=== PATIENT | female | born 1985 | race Caucasian/White ===

== ENCOUNTER 2016-11-25 16:27 | Emergency (ER) | payer OTHER ==
[2016-11-25 16:43] VITALS: BP 113/69; PULSE 72; TEMP 97.6; BMI 23.8
[2016-11-25] MEDS ORDERED: KETOROLAC TROMETHAMINE 60 MG/2 ML VIAL ONE (17:11)
[2016-11-25] MEDS ORDERED: CYCLOBENZAPRINE HCL 10 MG TABLET (FP) ONE (17:12)
[2016-11-25] MEDS ORDERED: CYCLOBENZAPRINE HCL 10 MG TABLET (FP) PO ONE (17:21)
[2016-11-25] MEDS ORDERED: KETOROLAC TROMETHAMINE 60 MG/2 ML VIAL IM ONE (17:21)
--- NOTE | 2016-11-25 17:32 | PDOC ---
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 Patient denies any slip, denies any trauma, denies any recent injury. 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 Denies fever, denies any bowel or bladder changes, has no recurring and is not currently sexually active Occurred: reports: just prior to arrival, this afternoon Severity: reports: moderate, severe Pain Location: reports: back Method of Injury: Yes: unknown Modifying Factors: improves with: pain medication Loss of Consciousness: no loss of consciousness Associated Symptoms (Fall): denies symptoms Past History - Travel Traveled outside of the country in the last 30 days: No Close contact w/someone who was outside of country & ill: No - Past Medical History Allergies/Adverse Reactions: Allergies Allergy/AdvReac Type Severity Reaction Status Date / Time No Known Allergies Allergy Verified 11/25/16 16:44 Home Medications: Ambulatory Orders Cyclobenzaprine HCl [Flexeril 10 mg] 10 mg PO BID PRN #14 tablet 11/25/16 Other medical history: PATIENT DENIES MEDICAL HX - Psycho/Social/Smoking Cessation Hx Suicidal Ideation: No Smoking History: Never smoked Hx Alcohol Use: No Drug/Substance Use Hx: No Substance Use Type: None Trauma Specific PMHX - Complaint Specific PMHX Back Injury: Yes Neck Injury: No Review of Systems - Review of Systems Able to Perform ROS?: Yes Is the patient limited Tajik proficient: Yes Constitutional: Yes: See HPI, Malaise. No: Symptoms Reported, Chills, Fever HEENTM: Yes: See HPI. No: Symptoms Reported Musculoskeletal: Yes: Symptoms Reported, See HPI, Back Pain, Muscle Pain Integumentary: No: Symptoms Reported Neurological: Yes: Symptoms reported, See HPI, Paresthesia (left leg/sciatic) All Other Systems: Reviewed and Negative *Physical Exam - Vital Signs Last Vital Signs Temp Pulse Resp BP Pulse Ox 97.6 F 72 16 113/69 100 11/25/16 16:30 11/25/16 16:30 11/25/16 16:30 11/25/16 16:30 11/25/16 16:30 - Physical Exam General Appearance: Yes: Nourished, Appropriately Dressed, Apparent Distress, Moderate Distress HEENT: positive: CAR, Normal ENT Inspection, TMs Normal, Pharynx Normal Respiratory/Chest: positive: Lungs Clear, Normal Breath Sounds Cardiovascular: positive: Regular Rate Gastrointestinal/Abdominal: positive: Soft. negative: Tender Musculoskeletal: positive: Normal Inspection, Decreased Range of Motion ( secondary to spasm and pain), Muscle Spasm (tender tight musculature to the left lower vertebral spinous muscles from lower thorax extending into gluteus). 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 intact, Fully Oriented, Alert, Normal Mood/ Affect, Normal Response, Motor Strength 5/5 Progress Note - Progress Note Progress Note: Back spasm, will treat with NSAIDs and cyclobenzaprine *DC/Admit/Observation/Transfer Diagnosis at time of Disposition: Muscle spasm of back - Discharge Dispostion Disposition: HOME Condition at time of disposition: Good Admit: No - Prescriptions Prescriptions: Cyclobenzaprine HCl [Flexeril 10 mg] 10 mg PO BID PRN #14 tablet PRN Reason: spasm - Referrals Referrals: Dm Rodriguez MD [Primary Care Provider] - - Patient Instructions Printed Discharge Instructions: DI for Back Spasm Additional Instructions: Rest, no heavy lifting or exercise until pain is resolved Hot soaks to neck and low back as often as possible/hot showers or Jacuzzis No massage or therapy until spasm is gone Continue ibuprofen 2-200 mg tablets every 6 hours for the next 3 days then as needed for pain and swelling Cyclobenzaprine 1-10mg every 8 hours as needed for spasm If not significant improvement within 24 hours with medication and rest regime, followup with private physician for change in medications and /or therapy. - Post Discharge Activity Work/School Note: Back to Work
== END 2016-11-25 17:48 | disposition home or self-care (01) ==
LOC: JERFT 16:27
PROC: 3E0233Z Introduction of Anti-inflammatory into Muscle, Percutaneous Approach (ICD-10-PCS; principal; 2016-11-25)
DX: M62.830 Muscle spasm of back (principal)
CPT/HCPCS: 99281-25

== ENCOUNTER 2017-04-08 19:14 | Emergency (ER) | payer OTHER ==
[2017-04-08 19:20] VITALS: BP 97/59; PULSE 63; TEMP 97.6; BMI 23.8
[2017-04-08 19:26] LABS: PH,URINE 6.5 (4.5-8); URINE APPEARANCE Clear; URINE BILIRUBIN Negative (NEGATIVE); URINE BLOOD Negative (NEGATIVE); URINE COLOR YELLOW; URINE GLUCOSE (UA) Negative (NEGATIVE); URINE KETONE 1+ (NEGATIVE); URINE LEUK ESTERASE Negative (NEGATIVE); URINE NITRITE Negative (NEGATIVE); URINE PROTEIN Negative (NEGATIVE); URINE UROBILINOGEN 0.2 (0.2-1.0)
--- NOTE | 2017-04-08 19:30 | PDOC ---
History of Present Illness - History of Present Illness Initial Comments: 04/08/17 19:41 The patient is a 31 year old female, with no significant past medical history of kidney stones (Summer 2016) and chronic back pain, who presents to the emergency department with progressively increasing left lower quadrant and left pelvic pain today. She states the pain is sharp with intermittent radiation into her left inguinal region. She reportedly took one percocet that she had left over from the kidney stones without significant relief. She states this feels like my kidney stone. The patient states she is sexually active with her and is trying to become . LMP: over 3 months ago (irregular since after IUD removal) She denies chest pain, shortness of breath, headache and dizziness. She denies fever, chills, nausea, vomit, diarrhea and constipation. She denies dysuria, frequency, urgency and hematuria. 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 No sore throat,. No ear pain CardioVascular: No chest pain or shortness of breath Respiratory:No cough, or wheezing. Gastrointestinal: (+) right lower abdominal pain. no nausea, vomiting, diarrhea or constipation, No rectal bleeding Genitourinary: (+) right inguinal pain. No dysuria, hematuria, or frequency Musculoskeletal: No joint or muscle pain or swelling Neurologic: No headache, vertigo, dizziness or loss of consciousness Psychiatric: nor depression Skin: No rashes or easy bruising Endocrine: no increased thirst or abnormal weight change Allergic: no skin or latex allergy All other systems reviewed and normal Adult Exam: General: Well-nourished well-developed individual, no acute distress HEENT: Throat: Normal, tonsils normal, no erythema or exudate Neck: Supple, no meningeal signs, no lymphadenopathy Eyes::Pupils equal reactive and round, extraocular motion intact Chest: Nontender to palpation Abdomen: (+) LLQ and left adnexal tenderness, mild left flank ttp Soft, nondistended, normal bowel sounds, nontender to palpation diffusely. Extremities: Warm, dry, no cyanosis, clubbing, or edema Skin: No rashes Neuro: Alert and oriented x3, nonfocal exam, grossly intact, normal gait Psych: Normal mood and affect Pelvic: (+) no discharge no cervical motion tenderness. mild left adnexal tenderness <Na Gonzales - Last Filed: 04/08/17 21:06> - General History Source: Patient Exam Limitations: No Limitations - History of Present Illness Initial Comments: 04/08/17 20:17 A portion of this note was documented by scribe services under my direction. I have reviewed the details of the note, within reason, and agree with the documentation. The case summary and management plan written by me. Medical decision making This is a 31-year-old female comes in complaining of left groin/left lower quadrant and flank pain similar to what she has had in the past with kidney stones. Patient however had a urine that was negative for blood. On my exam patient did have some left flank tenderness as well as left lower quadrant/ pelvic tenderness. There was no guarding or rebound I did a pelvic exam and there was some left adnexal tenderness. Patient's test was negative and a stone protocol noncontrast CAT scan was done of her abdomen and pelvis. Differential includes ovarian cyst, kidney stone, ovulation pain, Nonspecific pelvic pain 04/08/17 21:10 Patient had a CAT scan done that showed no kidney stone, no obstructive uropathy no hydronephrosis or hydroureter. Uterus was normal however there was a small amount of free fluid in the pelvis. This most likely was secondary to a ruptured ovarian cyst or could've been physiologic however given the patient's pelvic pain it is likely that it was a ruptured ovarian cyst and the fluid is contributing to her pain. Patient told to take an anti-inflammatory such as ibuprofen for pain and follow- up with her OB doctor this week if symptoms did not resolve within the next 24 hours. <Teagan Hairston I - Last Filed: 04/08/17 21:21> - General Chief Complaint: Pain, Acute Stated Complaint: LT GROIN PAIN Time Seen by Provider: 04/08/17 19:29 Past History <Na Gonzales - Last Filed: 04/08/17 21:06> - Past Medical History COPD: No Kidney Stones: Yes Other medical history: CHRONIC BACK PAIN - Suicide/Smoking/Psychosocial Hx Smoking History: Never smoked Hx Alcohol Use: No Drug/Substance Use Hx: No Substance Use Type: None <Teagan Hairston I - Last Filed: 04/08/17 21:21> - Past Medical History Allergies/Adverse Reactions: Allergies Allergy/AdvReac Type Severity Reaction Status Date / Time No Known Allergies Allergy Verified 11/25/16 16:44 Home Medications: Ambulatory Orders Oxycodone HCl/Acetaminophen [Percocet 5-325 mg Tablet] 1 - 2 tab PO PRN PRN Tramadol HCl [Ultram -] 50 mg PO PRN PRN 04/08/17 *Physical Exam - Vital Signs Last Vital Signs Temp Pulse Resp BP Pulse Ox 97.6 F 63 16 97/59 100 04/08/17 19:18 04/08/17 19:18 04/08/17 19:18 04/08/17 19:18 04/08/17 19:18 <Na Gonzales - Last Filed: 04/08/17 21:06> - Vital Signs Last Vital Signs Temp Pulse Resp BP Pulse Ox 97.6 F 63 16 97/59 100 04/08/17 19:18 04/08/17 19:18 04/08/17 19:18 04/08/17 19:18 04/08/17 19:18 <Teagan Hairston I - Last Filed: 04/08/17 21:21> ED Treatment Course - LABORATORY CBC & Chemistry Diagram: 04/08/17 19:42 04/08/17 19:42 - ADDITIONAL ORDERS Additional order review: Laboratory Results 04/08/17 19:15 Urine Color Yellow Urine Appearance Clear Urine pH 6.5 Ur Specific Exchange 1.025 Urine Protein Negative Urine Glucose (UA) Negative Urine Ketones 1+ H Urine Blood Negative Urine Nitrite Negative Urine Bilirubin Negative Urine Urobilinogen 0.2 Ur Leukocyte Esterase Negative Urine HCG, Qual Negative - RADIOLOGY Radiograph Interpretation: EXAM#: TYPE/EXAM: RESULT: [id number] CT/ABDOMEN PELVIS CT W/O CONTR Exam: CT abdomen and pelvis without contrast. Indication: Left flank pain. Technique: Continues axial CT images of the abdomen and pelvis were obtained without oral contrast and without intravenous contrast. Coronal and sagittal reconstructions obtained. Comparison: None. Findings: Evaluation of the solid viscera, vessels, lymph nodes and bowel is limited without contrast. The visualized lung bases are clear. The heart is not enlarged. The liver is normal in size and contour. The gallbladder is contracted. The common bile duct is not dilated. The unenhanced pancreas is grossly unremarkable. Normal size spleen. No adrenal gland mass. No renal or ureteral calculi. Normal size kidneys. No hydroureteronephrosis. Normal caliber abdominal aorta. No pathologically dilated loops of large or small bowel to suggest obstruction. There is copious stool throughout the colon. The appendix is not identified, however, there are no definite pericecal inflammatory changes to suggest acute appendicitis. There is no free intraperitoneal air. No evidence of urinary bladder calculus. Urinary bladder is underdistended, limiting evaluation. Uterus is unremarkable. There is trace nonspecific free fluid in the cul-de-sac , presumably physiologic. No acute fracture in the visualized osseous structures. Osteitis condensans ilii is noted. Impression: No obstructive uropathy. No renal, ureteral or urinary bladder calculi identified. Reported By: Jax Katz DO 04/08/172102 <Na Gonzales - Last Filed: 04/08/17 21:06> - LABORATORY CBC & Chemistry Diagram: 04/08/17 19:42 04/08/17 19:42 - ADDITIONAL ORDERS Additional order review: Laboratory Results 04/08/17 19:15 Urine Color Yellow Urine Appearance Clear Urine pH 6.5 Ur Specific Exchange 1.025 Urine Protein Negative Urine Glucose (UA) Negative Urine Ketones 1+ H Urine Blood Negative Urine Nitrite Negative Urine Bilirubin Negative Urine Urobilinogen 0.2 Ur Leukocyte Esterase Negative <Teagan Hairston I - Last Filed: 04/08/17 21:21> *DC/Admit/Observation/Transfer - Attestations Scribe Attestion: 04/08/17 19:42 Documentation prepared by Na Gonzales, acting as emergency medical technician for Teagan Hairston MD <Na Gonzales - Last Filed: 04/08/17 21:06> - Discharge Dispostion Admit: No <Teagan Hairston I - Last Filed: 04/08/17 21:21> Diagnosis at time of Disposition: Pelvic pain - Discharge Dispostion Disposition: HOME Condition at time of disposition: Stable - Referrals Referrals: Dm Rodriguez MD [Primary Care Provider] - - Patient Instructions Additional Instructions: For the pain you can take ibuprofen 3 tablets 3 times a day with food as needed The CAT scan shows some free fluid in the pelvis most likely secondary to a ruptured ovarian cyst or postop ovulation. This fluid should resolve over the next 24-48 hours and symptoms should improve if you develop fevers or worsening pain return to the emergency room or follow-up with your OB. Return to the emergency department immediately with ANY new, persistent or worsening symptoms. Continue any medications as previously prescribed by your physician. You should follow up with your primary doctor as soon as possible regarding today's emergency department visit. . Please make sure your doctor reviews the results of your emergency evaluation. Thank you for coming to the Emergency Department today for your care. It was a pleasure to see you today. Please note that your evaluation is INCOMPLETE until you follow-up with your doctor. - Post Discharge Activity
[2017-04-08] MEDS ORDERED: SODIUM CHLORIDE 1,000 ML IV ONE (19:34)
[2017-04-08 19:53] LABS: BASOPHIL 0.3 % (0-2.0); EOSINOPHIL 1.7 % (0-4.5); MCH 30.9 pg (25.7-33.7); MCHC 34.1 g/dl (32.0-36.0); MEAN CELL VOLUME 90.7 fl (80-96); MEAN PLT VOLUME 8.6 fl (7.5-11.1); NEUTROPHILS 57.9 % (42.8-82.8); PLATELET COUNT 257 K/MM3 (134-434); RDW 11.6 % (11.6-15.6); WHITE BLOOD COUNT 6.4 K/mm3 (4.0-10.8)
[2017-04-08 20:07] LABS: ALBUMIN 3.9 g/dl (3.5-5.0); ALK PHOS 69 U/L (32-92); ANION GAP 5 (8-16); CALCIUM 8.9 mg/dl (8.4-10.2); CO2 22 mmol/L (22-28); CREATININE 0.8 mg/dl (0.6-1.3); GLUCOSE,RANDOM 84 mg/dl (74-106); SGOT/AST 24 U/L (10-42); SGPT/ALT 20 U/L (10-40); TOT PROT 6.8 g/dl (6.4-8.3)
== END 2017-04-08 21:28 | disposition home or self-care (01) ==
LOC: FER 19:14
PROC: 3E0337Z Introduction of Electrolytic and Water Balance Substance into Peripheral Vein, Percutaneous Approach (ICD-10-PCS; principal; 2017-04-08)
DX: R10.2 Pelvic and perineal pain (principal)
CPT/HCPCS: 36415; 74176-TC; 80053; 81003; 84703; 85025; 99282-25

== ENCOUNTER 2019-05-20 04:48 | Emergency (ER) | payer BC, OTHER ==
[2019-05-20 05:14] VITALS: BMI 25.6
[2019-05-20] MEDS ORDERED: ONDANSETRON 4 MG TABLET PO ONE (05:23)
[2019-05-20] MEDS ORDERED: SODIUM CHLORIDE 0.9% 1000 ML INFUS.BAG IV ONE (05:29)
[2019-05-20] MEDS ORDERED: ONDANSETRON 4 MG/2 ML VIAL IVPUSH ONE (05:29)
[2019-05-20] MEDS ORDERED: FAMOTIDINE 20 MG/50 ML IVPB 50 ML IVPB ONE (05:29)
--- NOTE | 2019-05-20 05:30 | PDOC ---
Attending Attestation - Resident Resident Name: Reid Quiñonesony - ED Attending Attestation I have performed the following: I have examined & evaluated the patient, The case was reviewed & discussed with the resident, I agree w/resident's findings & plan - HPI HPI: 05/20/19 06:53 Pt comes with multiple complaints. One day of L flank pain, suprapubic pain with diarrhea. No fever and no chills and no flulike symptomes. She has morning sickness given her current 1st trimester . Pt has sick contacts at work - Physicial Exam PE: 05/20/19 06:54 Agree with resident exam - Medical Decision Making 05/20/19 06:55 Pt will get basic labs and hydration in the ER UA pending 05/22/19 05:15 Pt will be signed out to the day team Flu culture pending.
[2019-05-20] MEDS ORDERED: ACETAMINOPHEN 1000 MG/100 ML VIAL (NON FORMULARY) IVPB ONE (05:32)
[2019-05-20] MEDS ORDERED: ONDANSETRON 4 MG/2 ML VIAL ONE (05:42)
[2019-05-20] MEDS ORDERED: ACETAMINOPHEN INJECTION 100 ML IVPB ONE (05:42)
[2019-05-20] MEDS ORDERED: FAMOTIDINE 20 MG/50 ML IVPB 20 MG/50 ML MG IVPB ONE (05:46)
--- NOTE | 2019-05-20 06:11 | PDOC ---
History of Present Illness - General Chief Complaint: Pain, Acute Stated Complaint: CRAMPING, LIGHTHEADED Time Seen by Provider: 05/20/19 05:29 History Source: Patient Exam Limitations: No Limitations - History of Present Illness Initial Comments: 05/20/19 05:57 33F with no PMH, at 10 weeks, who presents to the ER with multiple complaints. The patient states that she's had 1 day of L flank pain, suprapubic pain with diarrhea. She denies fever, chills, sore throat, cough, dysuria, myalgias, hematuria, vaginal bleeding, vaginal discharge, and cramping. She states that she has a history of kidney stones but is unsure if this feels like a kidney stone. She states that she is nauseous at baseline for her . Pt states that "a lot" of people at her work had to be sent home for flu-like symptoms. Past History - Past Medical History Allergies/Adverse Reactions: Allergies Allergy/AdvReac Type Severity Reaction Status Date / Time No Known Allergies Allergy Verified 05/20/19 05:12 Home Medications: Ambulatory Orders Oxycodone HCl/Acetaminophen [Percocet 5-325 mg Tablet] 1 - 2 tab PO PRN PRN traMADol HCL [Ultram -] 50 mg PO PRN PRN 04/08/17 COPD: No Kidney Stones: Yes - Immunization History Immunization Up to Date: Yes - Psycho Social/Smoking Cessation Hx Smoking History: Never smoked Hx Alcohol Use: No Drug/Substance Use Hx: No Substance Use Type: None Review of Systems - Review of Systems Able to Perform ROS?: Yes Comments:: 05/20/19 06:18 GENERAL/CONSTITUTIONAL: No fever or chills. No weakness. HEAD, EYES, EARS, NOSE AND THROAT: No change in vision. No ear pain or discharge. No sore throat. CARDIOVASCULAR: No chest pain, palpitations, or lightheadedness. RESPIRATORY: No cough, wheezing, shortness of breath, or hemoptysis. GASTROINTESTINAL: + for nausea and diarrhea. No abdominal pain, vomiting, or constipation. GENITOURINARY: + for L flank pain. No dysuria, frequency, hematuria, or change in urination. MUSCULOSKELETAL: No joint or muscle swelling or pain. No neck or back pain. SKIN: No rash or lesions. NEUROLOGIC: No headache, numbness, tingling, focal weakness, loss of consciousness, or change in strength/sensation. Is the patient limited Syriac proficient: No *Physical Exam - Vital Signs Last Vital Signs Temp Pulse Resp BP Pulse Ox 98.0 F 62 18 112/62 100 05/20/19 05:12 05/20/19 05:12 05/20/19 05:12 05/20/19 05:12 05/20/19 05:12 - Physical Exam 05/20/19 06:19 GENERAL: Well developed, well nourished. Awake and alert. No acute distress. HEENT: Normocephalic, atraumatic. Hearing grossly normal. Moist mucous membranes. PERRLA, EOMI. No conjunctival pallor. Sclera are non-icteric. NECK: Supple. Full ROM. No JVD. CARDIOVASCULAR: Regular rate and rhythm. No murmurs, rubs, or gallops. Distal pulses are 2+ and symmetric. PULMONARY: No evidence of respiratory distress. Lungs clear to auscultation bilaterally. No wheezing, rales, or rhonchi. ABDOMINAL: Soft. Gravid. Non-tender. Non-distended. No rebound or guarding. GENITOURINARY: R CVA tenderness. MUSCULOSKELETAL: Normal range of motion at all joints. No bony deformities or tenderness. EXTREMITIES: No cyanosis. No clubbing. No edema. No calf tenderness or swelling. SKIN: Warm and dry. Normal capillary refill. No rashes. No jaundice. NEUROLOGICAL: Alert, awake, appropriate. Cranial nerves 2-12 grossly intact. Normal speech. Gait is normal without ataxia. PSYCHIATRIC: Cooperative. Good eye contact. Appropriate mood and affect. ED Treatment Course - LABORATORY CBC & Chemistry Diagram: 05/20/19 05:48 05/20/19 05:48 - Medications Given in the ED: ED Medications Discontinued Medications Generic Name Dose Route Start Last Admin Trade Name Freq PRN Reason Stop Dose Admin Acetaminophen 1,000 mg 05/20/19 05:32 05/20/19 05:44 Ofirmev Injection - IVPB 05/20/19 05:33 1,000 mg ONCE ONE Administration Ondansetron HCl 4 mg 05/20/19 05:23 05/20/19 05:44 Zofran - PO 05/20/19 05:24 Not Given ONCE ONE Ondansetron HCl 4 mg 05/20/19 05:29 05/20/19 05:44 Zofran Injection IVPUSH 05/20/19 05:30 4 mg ONCE ONE Administration Sodium Chloride 1,000 ml 05/20/19 05:29 05/20/19 05:44 Normal Saline - IV 05/20/19 05:30 1,000 ml ONCE ONE Administration Medical Decision Making - Medical Decision Making 05/20/19 06:21 33F a 10 weeks who presents with L flank pain, diarrhea, and possible flu positive contacts. Will obtain labs, hydrate, and flu swab. Pending labs, UA, and likely renal US to r/o hydro. 05/20/19 07:02 CBC, CMP WNL. Pt signed out to Dr. Martinez for further evaluation. Discharge - Discharge Information Problems reviewed: Yes - Follow up/Referral Referrals: Dm Rodriguez MD [Primary Care Provider] - - Patient Discharge Instructions - Post Discharge Activity
[2019-05-20 06:12] LABS: BASO % 0.4 % (0-2.0); EOS % 1.4 % (0-4.5); HEMATOCRIT 37.2 % (32.4-45.2); HEMOGLOBIN 12.9 GM/dL (10.7-15.3); MCH 31.9 pg (25.7-33.7); MCHC 34.8 g/dl (32.0-36.0); MEAN CELL VOLUME 91.8 fl (80-96); MEAN PLT VOLUME 8.4 fl (7.5-11.1); MONO % 8.8 % (3.8-10.2); NEUT % 61.4 % (42.8-82.8); PLATELET COUNT 312 K/MM3 (134-434); RBC 4.05 M/mm3 (3.60-5.2); RDW 12.6 % (11.6-15.6); WHITE BLOOD COUNT 5.4 K/mm3 (4.0-10.0)
[2019-05-20 06:43] LABS: ALBUMIN 3.4 g/dl (3.4-5.0); BILIRUBIN,TOTAL 0.7 mg/dL (0.2-1); BLOOD UREA NITROGEN 13.7 mg/dL (7-18); CALCIUM 8.7 mg/dL (8.5-10.1); CREATININE 0.6 mg/dL (0.55-1.3); POTASSIUM 3.9 mmol/L (3.5-5.1); TOT PROT 6.9 g/dl (6.4-8.2)
--- NOTE | 2019-05-20 07:20 | PDOC ---
*Physical Exam - Vital Signs Last Vital Signs Temp Pulse Resp BP Pulse Ox 98.0 F 62 18 112/62 100 05/20/19 05:12 05/20/19 05:12 05/20/19 05:12 05/20/19 05:12 05/20/19 05:12 - Physical Exam 05/20/19 09:34 General Appearance: Nourished. No Apparent Distress HEENT: No Pharyngeal Erythema, Tonsillar Exudate, Tonsillar Erythema Neck: No Cervical Lymphadenopathy Respiratory/Chest: Lungs Clear, Normal Breath Sounds. No Crackles, Rales, Rhonchi, Wheezing Cardiovascular: Regular Rhythm, Regular Rate. No Murmur, Gallops, Rubs Gastrointestinal/Abdominal: Normal Bowel Sounds, Soft. No Guarding, Rebound, Tenderness Musculoskeletal: No CVA Tenderness Extremity: Normal Capillary Refill Integumentary: Normal Color, Dry, Warm Neurologic: Fully Oriented, Alert, Normal Mood/Affect, Normal Response, ED Treatment Course - LABORATORY CBC & Chemistry Diagram: 05/20/19 05:48 05/20/19 05:48 - ADDITIONAL ORDERS Additional order review: Laboratory Results 05/20/19 05:48 Sodium 138 Potassium 3.9 Chloride 108 H Carbon Dioxide 24 Anion Gap 7 L BUN 13.7 Creatinine 0.6 Est GFR (CKD-EPI)AfAm 139.78 Est GFR (CKD-EPI)NonAf 120.61 Random Glucose 79 Calcium 8.7 Total Bilirubin 0.7 AST 13 L ALT 21 Alkaline Phosphatase 59 Total Protein 6.9 Albumin 3.4 05/20/19 05:48 RBC 4.05 MCV 91.8 MCHC 34.8 RDW 12.6 MPV 8.4 Neutrophils % 61.4 Lymphocytes % 28.0 Monocytes % 8.8 Eosinophils % 1.4 Basophils % 0.4 - Medications Given in the ED: ED Medications Discontinued Medications Generic Name Dose Route Start Last Admin Trade Name Freq PRN Reason Stop Dose Admin Acetaminophen 1,000 mg 05/20/19 05:32 05/20/19 05:44 Ofirmev Injection - IVPB 05/20/19 05:33 1,000 mg ONCE ONE Administration Ondansetron HCl 4 mg 05/20/19 05:23 05/20/19 05:44 Zofran - PO 05/20/19 05:24 Not Given ONCE ONE Ondansetron HCl 4 mg 05/20/19 05:29 05/20/19 05:44 Zofran Injection IVPUSH 05/20/19 05:30 4 mg ONCE ONE Administration Sodium Chloride 1,000 ml 05/20/19 05:29 05/20/19 05:44 Normal Saline - IV 05/20/19 05:30 1,000 ml ONCE ONE Administration Medical Decision Making - Medical Decision Making 05/20/19 10:07 Pelvic US demonstrates a live intrauterine at 9weeks with a FH or 162 as read by our radiologist. Renal US did not demonstrate any acute process as read by our radiologist. UA was unremarkable. The patient was reassessed and reports improvement in their symptoms. We are comfortable discharging the patient home in stable condition. Patient made aware of impression and plan, return precautions discussed including but not limited to worsening pain or symptoms, fevers, or signs of infection, chest pain, respiratory distress, inability to tolerate oral intake, dehydration, syncope, or neurologic changes. The patient is to follow up with PMD and specialist as recommended within 1 week , follow up information provided and the patient will call for an appointment. The patient is to take medications as instructed for duration of time and continue with supportive care, avoid triggers and precipitants. Patient is safe for outpatient follow-up. Discharge - Discharge Information Problems reviewed: Yes Clinical Impression/Diagnosis: Abdominal pain Qualifiers: Abdominal location: unspecified location Qualified Code(s): R10.9 - Unspecified abdominal pain Condition: Stable Disposition: HOME - Follow up/Referral Referrals: Dm Rodriguez MD [Primary Care Provider] - - Patient Discharge Instructions Patient Printed Discharge Instructions: DI for Abdominal Pain -- Early Additional Instructions: 1) Please follow-up with your primary care doctor in the next 2-3 days. Please call tomorrow to schedule a follow up appointment. If you cannot follow up with your doctor within 1 week please return to the Emergency Department for any urgent issues. 2) Your laboratory / imaging results were normal here in the ER. 3) If you have any worsening of symptoms or any other concerns, please return to the ER immediately. Return if worsening symptoms including fevers, headache, vomiting, visual or hearing disturbances, abdominal pain, chest pain, shortness of breath, syncope, dehydration, inability to take things by mouth/vomiting, altered mental status, or worsening concerning symptoms. 4) Please continue taking your home medications as directed. Your medications on discharge include Tylenol. Side effects may include upset stomach, abdominal pain, vomiting, or diarrhea. Do not drink alcohol with your medications. - Post Discharge Activity
[2019-05-20 08:01] LABS: PH,URINE 6.5 (5.0-8.0); URINE APPEARANCE CLEAR; URINE BILIRUBIN NEGATIVE (NEGATIVE); URINE COLOR YELLOW; URINE GLUCOSE (UA) NEGATIVE (NEGATIVE); URINE KETONE NEGATIVE (NEGATIVE); URINE LEUK ESTERASE NEGATIVE (NEGATIVE); URINE NITRITE NEGATIVE (NEGATIVE); URINE PROTEIN NEGATIVE (NEGATIVE); URINE UROBILINOGEN 0.2 mg/dL (0.2-1.0)
[2019-05-20 10:28] VITALS: BP 115/62; PULSE 69; TEMP 98.2
== END 2019-05-20 10:37 | disposition home or self-care (01) ==
LOC: JER 04:48
PROC: 3E033GC Introduction of Other Therapeutic Substance into Peripheral Vein, Percutaneous Approach (ICD-10-PCS; principal; 2019-05-20)
PROC: 3E033GC Introduction of Other Therapeutic Substance into Peripheral Vein, Percutaneous Approach (ICD-10-PCS; 2019-05-20)
PROC: 3E033NZ Introduction of Analgesics, Hypnotics, Sedatives into Peripheral Vein, Percutaneous Approach (ICD-10-PCS; 2019-05-20)
DX: O26.891 Other specified pregnancy related conditions, first trimester (principal); O21.0 Mild hyperemesis gravidarum; Z3A.09 9 weeks gestation of pregnancy
CPT/HCPCS: 36415; 76775-TC; 76801-TC; 80053; 81003; 85025; 86850; 86900; 86901; 87086; 87804; 99282-25; J0131; J7030

== ENCOUNTER 2020-02-25 01:36 | Emergency (ER) | payer BC, OTHER ==
[2020-02-25] MEDS ORDERED: KETOROLAC TROMETHAMINE 30 MG/1 ML VIAL IVPUSH ONE (01:40)
[2020-02-25] MEDS ORDERED: LIDOCAINE 5% TOPICAL PATCH TP ONE (01:40)
[2020-02-25] MEDS ORDERED: morphine CARPU-JECT 2 MG/1 ML DISP.SYRIN IVPUSH ONE (01:41)
[2020-02-25] MEDS ORDERED: diazePAM 5 MG TABLET PO ONE (01:41)
--- OUTSIDE RECORDS SUMMARY | 2020-02-25 01:48 | XMS ---
:1985 Author Organization [facility] Name Relationship Address Phone ARIANNE JONES [address] [facility] [address] [place] [phone] [facility] [employer] Unavailable [address] [place] [address] OANH DUNN [address] [place], [place] [id number] Re-disclosure Warning The records that you are about to access may contain information from federally- assisted alcohol or drug abuse programs. If such information is present, then the following federally mandated warning applies: This information has been disclosed to you from records protected by federal confidentiality rules (42 CFR part 2). The federal rules prohibit you from making any further disclosure of this information unless further disclosure is expressly permitted by the written consent of the person to whom it pertains or as otherwise permitted by 42 CFR part 2. A general authorization for the release of medical or other information is NOT sufficient for this purpose. The Federal rules restrict any use of the information to criminally investigate or prosecute any alcohol or drug abuse patient.The records that you are about to access may contain highly sensitive health information, the redisclosure of which is protected by Article 27-F of the [facility] Public Health law. If you continue you may haveaccess to information: Regarding HIV / AIDS; Provided by facilities licensed or operated by the [facility] Office of Mental Health; or Provided by the [facility] Office for People With Developmental Disabilities. If such information is present, then the following [facility] mandated warning applies: This information has been disclosed to you from confidential records which are protected by state law. State law prohibits you from making any further disclosure of this information without the specific written consent of the person to whom it pertains, or as otherwise permitted by law. Any unauthorized further disclosure in violation of state law may result in a fine or intermediate sentence or both. A general authorization for the release of medical or other information is NOT sufficient authorization for further disclosure. Insurance Providers Payer name Policy type Policy ID Covered Covered libertarian's Policy P amy / Coverage libertarian ID relationship to [facility] type [employer] PPO [id number] [employer] O [id number] SP [id number] PPO [id number] Results ID Date Data Source [id number] 11/27/2019 12:00:00 AM EDT [facility] Name Value Range Interpretation Description Data Sup porting Code Source(s) Document(s ) [facility] 2 PCR [facility] by [facility]. Procedure
--- NOTE | 2020-02-25 01:54 | PDOC ---
History of Present Illness - General Chief Complaint: Pain, Acute Stated Complaint: ABDOMINAL PAIN Time Seen by Provider: 02/25/20 01:39 - History of Present Illness Initial Comments: HPI: 02/25/20 01:50 34 yo F PMH (vaginal), UTI, kidney stone, presenting with LLQ abd pain radiating into her back. Pain began two days ago and has gotten progressively worse. Went to urgent care yesterday thinking it was UTI, told it was not. Notes that she was diagnosed with a UTI a week ago and finished a 7 day course of ciprofloxacin. Complains of nausea without vomiting, dysuria, and hematuria. Notes that she has not had a period since she gave in November. Not on contraception. States that it feels different from previous kidney stone pain. 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 ROS: GENERAL/CONSTITUTIONAL: denies fever, chills, diaphoresis HEAD, EYES, EARS, NOSE AND THROAT: denies rhinorrhea, nasal congestion NEUROLOGIC: denies headache,dizziness, mental status changes CARDIOVASCULAR: denies chest pain, syncope, palpitations, lightheadedness RESPIRATORY: denies cough, shortness of breath, dyspnea with exertion GASTROINTESTINAL: endorses abdominal pain, nausea without vomiting. Denies diarrhea, constipation GENITOURINARY: endorses dysuria and hematuria. Denies vaginal bleeding or discharge MUSCULOSKELETAL: endorses L back pain SKIN: denies rash, itching PE: Gen: well-developed, well-nourished, tearful, appears uncomfortable Neuro: AAOX4, CN II-XII intact HEENT: atraumatic, normocephalic Neck: trachea midline, supple CV: regular rate, regular rhythm, no murmurs, rubs, or gallops Pulm: CTA b/l, no wheezing Abd: soft, non-distended, suprapubic tenderness MSK: full ROM, intact pulses Extr: no edema, no deformities Skin: warm, dry MDM: Concern for UTI v muscle spasm vs intra-pelvic pathology. - CBC, CMP - beta-hCG quant - PT/PTT - type and screen - UA/UC - Valium - morphine - Lidoderm patch - pelvic US 02/25/20 02:11 CBC wnl. 02/25/20 02:17 K 5.4 with hemolysis, no clinical concern for hyperkalemia. Rest of CMP pending. Patient at [facility]. 02/25/20 02:46 Back from [facility], pain down to 6/10. Mild nausea. Will give Zofran, 1L LR, await UA/UC. 02/25/20 02:58 Labs unconcerning, beta-hCG quant negative. Awaiting [facility] read, potential back spasms vs UTI/pyelo. 02/25/20 03:21 [facility] without acute pathology. Reassessed, feeling much better. Will f/u urine. 02/25/20 04:11 UA without UTI. Pelvic exam performed. Closed os, no CMT or adnexal tenderness. Yeast. Will give Diflucan here, send with two pills to use in 3 days, and another 3 days, if con tinuing to have symptoms. Back pain improved. Will also send Lidoderm patches for a week. Past History - Medical History Allergies/Adverse Reactions: Allergies Allergy/AdvReac Type Severity Reaction Status Date / Time No Known Allergies Allergy Verified 02/25/20 01:39 Home Medications: Ambulatory Orders Fluconazole [Diflucan] 150 mg PO ONCE #2 tablet 02/25/20 Lidocaine 5% Patch [Lidoderm Patch -] 1 patch TP DAILY #7 patch 02/25/20 COPD: No Kidney Stones: Yes - Reproductive History Is Patient Now?: No - Immunization History Immunization Up to Date: Yes - Psycho-Social/Smoking History Smoking History: Never smoked Have you smoked in the past 12 months: No Information on smoking cessation initiated: No - Substance Abuse Hx (Audit-C & DAST Scrn) How often the patient has a drink containing alcohol: Never Score: In Men: 4 or > Positive; In Women: 3 or > Positive: 0 Screen Result (Pos requires Nsg. Audit-10AR): Negative In the last yr the pt used illegal drug/Rx for NonMed reason: No Score: Yes response is considered Positive: 0 Screen Result (Positive result requires Nsg. DAST-10): Negative *Physical Exam - Vital Signs Last Vital Signs Temp Pulse Resp BP Pulse Ox 97.9 F 65 20 105/77 100 02/25/20 01:40 02/25/20 01:40 02/25/20 01:40 02/25/20 01:40 02/25/20 01:40 ED Treatment Course - LABORATORY CBC & Chemistry Diagram: 02/25/20 01:55 02/25/20 01:55 - RADIOLOGY Radiology Studies Ordered: Category Date Time Status TRANSVAGINAL ULTRASOUND US [US] Stat Ultrasound 02/25/20 01:49 Ordered Discharge - Discharge Information Problems reviewed: Yes Clinical Impression/Diagnosis: Yeast infection Back pain Qualifiers: Back pain location: low back pain Chronicity: unspecified Back pain laterality: left Sciatica presence: without sciatica Qualified Code(s): M54.5 - Low back pain Condition: Improved Disposition: HOME - Admission No - Additional Discharge Information Prescriptions: Fluconazole [Diflucan] 150 mg PO ONCE #2 tablet Lidocaine 5% Patch [Lidoderm Patch -] 1 patch TP DAILY #7 patch - Follow up/Referral Referrals: Dm Rodriguez MD [Primary Care Provider] - - Patient Discharge Instructions Patient Printed Discharge Instructions: DI for Low Back Pain, DI for Vaginal Yeast Infection Additional Instructions: You were seen with burning while peeing and back pain. You were found to have a yeast infection. Your back pain improved with medication. If you continue to have burning when you pee in 3 days, take your Diflucan. If it continues still, take another Diflucan three days later. Please put your Lidoderm patch once per day at the site of your back pain for up to 12 hours a day. Follow up with your primary care doctor within one week. Return to the ER if you develop new or worsening symptoms. - Post Discharge Activity
[2020-02-25 01:55] VITALS: TEMP 97.9; BMI 29.2
[2020-02-25] MEDS ORDERED: LIDOCAINE 5% TOPICAL PATCH ONE (01:55)
[2020-02-25] MEDS ORDERED: KETOROLAC TROMETHAMINE 30 MG/1 ML VIAL ONE (01:55)
[2020-02-25 02:02] LABS: BASO % 0.7 % (0-2.0); EOS % 4.5 % (0-4.5); HEMATOCRIT 38.8 % (32.4-45.2); HEMOGLOBIN 13.2 GM/dL (10.7-15.3); LYMPH % 34.4 % (8-40); MCH 31.1 pg (25.7-33.7); MEAN CELL VOLUME 91.6 fl (80-96); MEAN PLT VOLUME 8.7 fl (7.5-11.1); MONO % 11.5 % (3.8-10.2); NEUT % 48.9 % (42.8-82.8); PLATELET COUNT 281 K/MM3 (134-434); RBC 4.23 M/mm3 (3.60-5.2); RDW 13.3 % (11.6-15.6); WHITE BLOOD COUNT 5.8 K/mm3 (4.0-10.0)
[2020-02-25 02:13] LABS: CHLORIDE 113 mmol/L (98-107); POTASSIUM 5.4 mmol/L (3.5-5.1); SODIUM 140 mmol/L (136-145)
[2020-02-25 02:15] LABS: ALBUMIN 3.5 g/dl (3.4-5.0); ANION GAP 6 MMOL/L (8-16); CALCIUM 8.5 mg/dL (8.5-10.1); CO2 21 mmol/L (21-32)
[2020-02-25 02:18] LABS: INR 0.97 (0.83-1.09); PROTHROMBIN TIME (PATIENT) 11.8 SEC (9.7-13.0); SGOT/AST 34 U/L (15-37); SGPT/ALT 48 U/L (13-61)
[2020-02-25 02:20] LABS: BILIRUBIN,TOTAL 0.7 mg/dL (0.2-1); TOT PROT 7.2 g/dl (6.4-8.2)
[2020-02-25 02:21] LABS: ACTIVATED PTT 27.7 SECONDS (25.2-36.5); ALK PHOS 106 U/L (45-117)
[2020-02-25 02:25] LABS: GLUCOSE,RANDOM 88 mg/dL (74-106)
[2020-02-25] MEDS ORDERED: LACTATED RINGERS SOLUTION 1,000 ML/1,000 ML INFUS.BAG IV STA (02:45)
[2020-02-25] MEDS ORDERED: ONDANSETRON 4 MG/2 ML VIAL IVPUSH ONE (02:46)
[2020-02-25 03:50] VITALS: BP 103/63; PULSE 50
[2020-02-25 04:01] LABS: EPI CELLS >36 /uL (0-25.1); HYALINE CASTS 2 /uL (0-3.1); URINE APPEARANCE CLEAR; URINE BACTERIA 224 /uL (0-1359); URINE BILIRUBIN NEGATIVE (NEGATIVE); URINE COLOR YELLOW; URINE GLUCOSE (UA) NEGATIVE (NEGATIVE); URINE KETONE 1+ (NEGATIVE); URINE LEUK ESTERASE TRACE (NEGATIVE); URINE NITRITE NEGATIVE (NEGATIVE); URINE PROTEIN NEGATIVE (NEGATIVE); URINE RBC 14 /uL (0-23.9); URINE WBC 24 /uL (0-25.8)
[2020-02-25] MEDS ORDERED: FLUCONAZOLE 150 MG TABLET PO ONE ×2 (04:11→04:15)
--- NOTE | 2020-02-25 04:17 | PDOC ---
Attending Attestation - Resident Resident Name: Dwayne Aguilar - ED Attending Attestation I have performed the following: I have examined & evaluated the patient, The case was reviewed & discussed with the resident, I agree w/resident's findings & plan - HPI HPI: 02/25/20 04:52 Pt has left back pain. 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 Pt has no external vag lesions and she has no CMT tenderness - Medical Decision Making 02/25/20 04:55 Pt has yeast infection and she has muscle spasm Discharge - Discharge Information Problems reviewed: Yes Clinical Impression/Diagnosis: Yeast infection Back pain Qualifiers: Back pain location: low back pain Chronicity: unspecified Back pain laterality: left Sciatica presence: without sciatica Qualified Code(s): M54.5 - Low back pain Condition: Improved Disposition: HOME - Additional Discharge Information Prescriptions: Fluconazole [Diflucan] 150 mg PO ONCE #2 tablet Lidocaine 5% Patch [Lidoderm Patch -] 1 patch TP DAILY #7 patch - Follow up/Referral Referrals: Dm Rodriguez MD [Primary Care Provider] - - Patient Discharge Instructions Patient Printed Discharge Instructions: DI for Low Back Pain, DI for Vaginal Yeast Infection Additional Instructions: You were seen with burning while peeing and back pain. You were found to have a yeast infection. Your back pain improved with medication. If you continue to have burning when you pee in 3 days, take your Diflucan. If it continues still, take another Diflucan three days later. Please put your Lidoderm patch once per day at the site of your back pain for up to 12 hours a day. Follow up with your primary care doctor within one week. Return to the ER if you develop new or worsening symptoms. - Post Discharge Activity Work/Back to School Note: Back to Work
[2020-02-25] MEDS ORDERED: LIDOCAINE PATCH REMOVAL MC SCH (22:00)
== END 2020-02-25 04:34 | disposition home or self-care (01) ==
LOC: JER 01:36
PROC: 3E0333Z Introduction of Anti-inflammatory into Peripheral Vein, Percutaneous Approach (ICD-10-PCS; principal; 2020-02-25)
PROC: 3E033GC Introduction of Other Therapeutic Substance into Peripheral Vein, Percutaneous Approach (ICD-10-PCS; 2020-02-25)
DX: M54.5 Low back pain (principal); B37.3 Candidiasis of vulva and vagina
CPT/HCPCS: 36415; 76830-TC; 80053; 81003; 84702; 85025; 85610; 85730; 87077; 87086; 99284-25

== ENCOUNTER 2021-02-02 14:30 | Emergency (ER) | payer BC, OTHER ==
[2021-02-02 14:49] VITALS: BP 121/72; PULSE 66; TEMP 98.4; BMI 27.4
[2021-02-02] MEDS ORDERED: SODIUM CHLORIDE 1,000 ML IV STA (15:00)
[2021-02-02] MEDS ORDERED: morphine CARPU-JECT 4 MG/1 ML DISP.SYRIN IVPUSH ONE (15:00)
[2021-02-02] MEDS ORDERED: ONDANSETRON 4 MG/2 ML VIAL IVPUSH ONE (15:00)
[2021-02-02] MEDS ORDERED: morphine SULFATE 4 MG/ML VIAL ONE (15:38)
[2021-02-02] MEDS ORDERED: ONDANSETRON 4 MG/2 ML VIAL ONE (15:38)
[2021-02-02 15:39] LABS: HCG,QUALITATIVE URINE Negative
[2021-02-02 15:40] LABS: EPI CELLS >36 /uL (0-25.1); HYALINE CASTS 1 /uL (0-3.1); PH,URINE 6.5 (5.0-8.0); URINE APPEARANCE CLEAR; URINE BACTERIA 52 /uL (0-1359); URINE BILIRUBIN NEGATIVE (NEGATIVE); URINE COLOR YELLOW; URINE GLUCOSE (UA) NEGATIVE (NEGATIVE); URINE KETONE NEGATIVE (NEGATIVE); URINE LEUK ESTERASE 3+ (NEGATIVE); URINE NITRITE NEGATIVE (NEGATIVE); URINE PROTEIN NEGATIVE (NEGATIVE); URINE RBC 23 /uL (0-23.9); URINE UROBILINOGEN 0.2 mg/dL (0.2-1.0); URINE WBC 273 /uL (0-25.8)
[2021-02-02 15:58] LABS: BASO % 0.2 % (0-2.0); EOS % 0.5 % (0-4.5); HEMATOCRIT 40.5 % (32.4-45.2); HEMOGLOBIN 13.8 GM/dL (10.7-15.3); LYMPH % 10.3 % (8-40); MCH 31.5 pg (25.7-33.7); MEAN CELL VOLUME 92.7 fl (80-96); MEAN PLT VOLUME 8.4 fl (7.5-11.1); MONO % 5.2 % (3.8-10.2); NEUT % 83.8 % (42.8-82.8); PLATELET COUNT 288 10^3/uL (134-434); RBC 4.36 M/mm3 (3.60-5.2); RDW 12.4 % (11.6-15.6); WHITE BLOOD COUNT 10.8 K/mm3 (4.0-10.0)
[2021-02-02 16:17] LABS: CALCIUM 8.6 mg/dL (8.5-10.1)
[2021-02-02 16:18] LABS: ALBUMIN 3.8 g/dl (3.4-5.0); BLOOD UREA NITROGEN 15.4 mg/dL (7-18)
[2021-02-02 16:21] LABS: CREATININE 0.8 mg/dL (0.55-1.3)
[2021-02-02 16:22] LABS: BILIRUBIN,TOTAL 1.3 mg/dL (0.2-1)
[2021-02-02 16:23] LABS: TOT PROT 7.5 g/dl (6.4-8.2)
== END 2021-02-02 18:10 | disposition home or self-care (01) ==
LOC: JER 14:30
PROC: 3E033GC Introduction of Other Therapeutic Substance into Peripheral Vein, Percutaneous Approach (ICD-10-PCS; principal; 2021-02-02)
DX: N12 Tubulo-interstitial nephritis, not specified as acute or chronic (principal)
CPT/HCPCS: 36415; 74176-TC; 80053; 81003; 84703; 85025; 87077; 87086; 99285-25

== ENCOUNTER 2023-07-15 05:03 | Inpatient (IN) | payer BC, OTHER ==
[2023-07-15] MEDS ORDERED: METOCLOPRAMIDE HCL INJECTION 10 MG/2 ML VIAL ONE (05:32)
[2023-07-15] MEDS ORDERED: ONDANSETRON 4 MG/2 ML VIAL ONE ×2 (05:32→14:46)
[2023-07-15] MEDS ORDERED: MECLIZINE HCL 25 MG TABLET (FP) ONE ×2 (05:32→14:46)
[2023-07-15] MEDS: METOCLOPRAMIDE HCL INJECTION 10 MG/2 ML VIAL IVPB ONE (05:52)
[2023-07-15] MEDS: ONDANSETRON 4 MG/2 ML VIAL IVPUSH ONE (05:52)
[2023-07-15] MEDS: MECLIZINE HCL 25 MG TABLET (FP) PO ONE (05:52)
[2023-07-15] MEDS: SODIUM CHLORIDE 0.9% 500 ML INFUS.BAG IV ONE (05:52)
[2023-07-15 06:22] LABS: BASO % 0.3 % (0-2.0); EOS % 0.9 % (0-4.5); HEMATOCRIT 39.9 % (32.4-45.2); HEMOGLOBIN 13.6 GM/dL (10.7-15.3); LYMPH % 16.6 % (8-40); MCH 30.6 pg (25.7-33.7); MEAN CELL VOLUME 90.2 fl (80-96); MEAN PLT VOLUME 8.2 fl (7.5-11.1); MONO % 6.1 % (3.8-10.2); NEUT % 76.1 % (42.8-82.8); PLATELET COUNT 294 10^3/uL (134-434); RBC 4.42 M/mm3 (3.60-5.2); RDW 12.5 % (11.6-15.6); WHITE BLOOD COUNT 7.3 K/mm3 (4.0-10.0)
[2023-07-15] MEDS ORDERED: diazePAM CARPU-JECT 10 MG/2 ML DISP.SYRIN ONE (06:37)
[2023-07-15 06:39] LABS: POTASSIUM 4.8 mmol/L (3.5-5.1)
[2023-07-15 06:41] LABS: ALBUMIN 3.6 g/dl (3.4-5.0); BLOOD UREA NITROGEN 20.1 mg/dL (7-18); CALCIUM 8.6 mg/dL (8.5-10.1)
[2023-07-15 06:44] LABS: CREATININE 0.8 mg/dL (0.55-1.3)
[2023-07-15 06:46] LABS: BILIRUBIN,TOTAL 0.7 mg/dL (0.2-1); TOT PROT 7.3 g/dl (6.4-8.2)
[2023-07-15] MEDS: diazePAM CARPU-JECT 10 MG/2 ML DISP.SYRIN IVPUSH ONE (06:54)
[2023-07-15] MEDS: ONDANSETRON 4 MG/2 ML VIAL IVPUSH PRN (14:53)
[2023-07-15] MEDS: DEXTROSE 5%-0.45% SALINE 1,000 ML IV SCH (14:53)
[2023-07-15] MEDS: MECLIZINE HCL 25 MG TABLET (FP) PO PRN (14:53)
[2023-07-15 19:46] VITALS: BMI 29.3
[2023-07-16 08:32] LABS: BASO % 0.6 % (0-2.0); EOS % 2.5 % (0-4.5); HEMATOCRIT 34.5 % (32.4-45.2); HEMOGLOBIN 12.3 GM/dL (10.7-15.3); LYMPH % 41.4 % (8-40); MCH 32.1 pg (25.7-33.7); MCHC 35.5 g/dl (32.0-36.0); MEAN CELL VOLUME 90.3 fl (80-96); MEAN PLT VOLUME 8.5 fl (7.5-11.1); MONO % 9.5 % (3.8-10.2); PLATELET COUNT 245 10^3/uL (134-434); RBC 3.82 M/mm3 (3.60-5.2); RDW 12.6 % (11.6-15.6)
[2023-07-16 08:52] LABS: POTASSIUM 4.3 mmol/L (3.5-5.1)
[2023-07-16 08:53] LABS: ALBUMIN 2.9 g/dl (3.4-5.0)
[2023-07-16 08:56] LABS: CREATININE 0.8 mg/dL (0.55-1.3)
[2023-07-16 08:57] LABS: BILIRUBIN,TOTAL 0.4 mg/dL (0.2-1)
[2023-07-16] MEDS: TOPIRAMATE 25 MG TABLET PO SCH (22:40)
[2023-07-17 14:08] VITALS: BP 106/68; PULSE 58; RESP 24; TEMP 98.1
== END 2023-07-17 13:19 | disposition home or self-care (01) | DRG 149 ==
LOC: JER 05:03 → JERBED 09:56 → OBSVTOIN 13:47 → JERBED 17:44 → J4W 18:23
PROVIDERS: ADMIT Internal Medicine; ATTEND Internal Medicine
DX: R42 Dizziness and giddiness (principal); G43.909 Migraine, unspecified, not intractable, without status migrainosus
CPT/HCPCS: 36415; 70450-TC; 70552-TC; 80053; 84484; 84703; 85025; 93005; 93010; 99285-25; G0378